=== PATIENT | female | born 1980 | race Caucasian/White ===

== ENCOUNTER 2016-05-30 18:11 | Emergency (ER) | payer BC ==
[2016-05-30 19:07] VITALS: BP 142/101
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
[2016-05-30] MEDS ORDERED: ORPHENADRINE CITRATE 30 MG/ML VIAL IV ONE (21:02)
[2016-05-30] MEDS ORDERED: KETOROLAC TROMETHAMINE 60 MG/2 ML VIAL IM ONE ×2 (21:02→21:15)
[2016-05-30] MEDS ORDERED: ORPHENADRINE CITRATE 30 MG/ML VIAL IM ONE (21:14)
[2016-05-30] MEDS ORDERED: ORPHENADRINE CITRATE 30 MG/ML VIAL ONE (21:15)
== END 2016-05-30 21:27 | disposition home or self-care (01) ==
LOC: ER 18:11
DX: S13.9XXA Sprain of joints and ligaments of unspecified parts of neck, initial encounter (principal); Z90.710 Acquired absence of both cervix and uterus; V43.52XA Car driver injured in collision with other type car in traffic accident, initial encounter